=== PATIENT | female | born 1965 | race African-American/Black ===

== ENCOUNTER 2018-06-03 22:33 | Emergency (ER) | payer SELFPAY ==
[~2018-06-03] VITALS: Ht 165.1 cm; Wt 78.0 kg
[~2018-06-03 22:33] MED LIST: ALBUTEROL INHALER; BIRTH CONTROL; NORCO 5/325; UNK HTN MEDS; [UNRECOGNIZED DRUG - OTHER]
[2018-06-04 00:40] LABS: BASOPHILS % 0.5 % (0.0-2.0); EOSINOPHILS % 1.9 % (0.0-5.0); HEMATOCRIT. 42.1 % (36.0-48.0); HEMOGLOBIN. 14.1 g/dL (12.0-16.0); LYMPHOCYTES % 29.8 % (20.0-50.0); MEAN CORPUSCULAR HEMOGLOBIN 27.4 pg (28.0-32.0); MEAN CORPUSCULAR VOLUME 81.6 fL (81.0-99.0); MEAN PLATELET VOLUME 9.6 fl (7.4-10.4); MONOCYTES % 7.1 % (2.0-8.0); NEUTROPHILS % 60.7 % (40.0-76.0); PLATELET 266 x1000/uL (130-400); RED BLOOD CELL COUNT 5.16 mill/uL (4.2-5.4); RED CELL DISTRIBUTION WIDTH 13.2 % (11.6-14.6)
[2018-06-04 00:44] LABS: CHLORIDE 104 mEq/L (98-107)
[2018-06-04 00:56] LABS: CREATINE KINASE 261 IU/L (26-192)
[2018-06-04 01:31] VITALS: BP 133/88
== END 2018-06-04 08:08 | disposition home or self-care (01) ==
LOC: ER 06-04 08:08
DX: R00.2 Palpitations (principal); J45.909 Unspecified asthma, uncomplicated; E11.9 Type 2 diabetes mellitus without complications; I10 Essential (primary) hypertension; Z90.49 Acquired absence of other specified parts of digestive tract; Z98.890 Other specified postprocedural states; Z91.013 Allergy to seafood
CPT/HCPCS: 36415; 82550; 84484; 93005; 99284